=== PATIENT | female | born 2000 | race Caucasian/White ===

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

== ENCOUNTER → 2019-05-15 | Outpatient (REF) | payer BC ==
[2019-05-15 15:09] LABS: CHLAMYDIA DNA AMPLIFICATION NEGATIVE (NEGATIVE); GC DNA AMPLIFICATION NEGATIVE (NEGATIVE)
== END ==
LOC: M SFHCWAGY 13:08
PROVIDERS: ATTEND Nurse Practitioner Family
DX: Z11.3 Encounter for screening for infections with a predominantly sexual mode of transmission (principal)

== ENCOUNTER → 2020-08-03 | Outpatient (REF) | payer BC | LOC: M SFHCWAGY 09:52 | PROVIDERS: ATTEND Nurse Practitioner Women's Health | DX: Z12.4 Encounter for screening for malignant neoplasm of cervix (principal); Z11.3 Encounter for screening for infections with a predominantly sexual mode of transmission | CPT/HCPCS: 87491; 87591; G0123 ==

== ENCOUNTER → 2022-09-04 | Outpatient (REF) | payer OTHER | LOC: M SFHCWAGY 17:29 | PROVIDERS: ATTEND Nurse Practitioner Family | DX: Z12.4 Encounter for screening for malignant neoplasm of cervix (principal); Z77.9 Other contact with and (suspected) exposures hazardous to health; R87.615 Unsatisfactory cytologic smear of cervix ==

== ENCOUNTER → 2023-10-17 | Outpatient (CLI) | payer OTHER ==
[2023-10-17 19:41] LABS: FOLLICLE STIMULATING HORMONE 15.4 mIU/ML; LUTEINIZING HORMONE 70.2 mIU/ML; THYROID STIMULATING HORMONE 1.246 uIU/ML (0.55-4.78)
[2023-10-17 19:42] LABS: ESTRADIOL 201.8 PG/ML; FREE T4 1.06 NG/DL (0.89-1.76); PROLACTIN 21.55 NG/ML
[2023-10-17 19:43] LABS: HEMOGLOBIN A1c 4.8 % (4.0-6.0)
[2023-10-19 08:34] LABS: DEHYDROEPIANDROSTERONE SULFATE 241 mcg/dL (14-349)
== END ==
LOC: M PLALAB 16:01
PROVIDERS: ATTEND Nurse Practitioner Family
DX: N92.6 Irregular menstruation, unspecified (principal)
CPT/HCPCS: 36415; 82166; 82627; 82670; 83001; 83002; 83036; 83498; 84146; 84402; 84403; 84439; 84443; G0123

== ENCOUNTER → 2024-04-09 | Outpatient (CLI) | payer OTHER ==
[2024-04-09 13:27] LABS: HEMATOCRIT 38.5 % (36.0-47.0); HEMOGLOBIN 13.1 g/dl (12.0-15.5); MEAN CORPUSCULAR HEMOGLOBIN 31.5 pg (27.0-33.0); MEAN CORPUSCULAR VOLUME 92.5 fl (80.0-96.0); PLATELET COUNT, AUTOMATED 291 10^3/uL (150-450); RED BLOOD COUNT 4.16 10^6/uL (4.00-5.40); WHITE BLOOD COUNT 8.4 10^3/uL (4.0-10.0)
[2024-04-09 14:29] LABS: HIV 1&2 SCREEN NEGATIVE (NEGATIVE)
[2024-04-09 14:36] LABS: HEPATITIS C VIRUS ABY INDEX < 0.02 INDEX (<0.8)
[2024-04-09 15:05] LABS: GC DNA AMPLIFICATION NEGATIVE (NEGATIVE)
== END ==
LOC: M PLALAB 10:46
PROVIDERS: ATTEND Advanced Practice Midwife
DX: Z34.01 Encounter for supervision of normal first pregnancy, first trimester (principal); Z3A.00 Weeks of gestation of pregnancy not specified

== ENCOUNTER → 2024-06-05 | Outpatient (CLI) | payer OTHER | LOC: M WHC 15:34 | PROVIDERS: ATTEND Obstetrics & Gynecology | DX: Z36.89 Encounter for other specified antenatal screening (principal) ==

== ENCOUNTER → 2024-07-24 | Outpatient (CLI) | payer OTHER ==
[2024-07-24 11:09] LABS: HEMATOCRIT 33.2 % (36.0-47.0); HEMOGLOBIN 10.9 g/dl (12.0-15.5); MEAN CORPUSCULAR HEMOGLOBIN 31.1 pg (27.0-33.0); MEAN CORPUSCULAR HGB CONC 32.8 g/dl (32.0-36.5); MEAN CORPUSCULAR VOLUME 94.9 fl (80.0-96.0); PLATELET COUNT, AUTOMATED 262 10^3/uL (150-450); WHITE BLOOD COUNT 11.6 10^3/uL (4.0-10.0)
[2024-07-24 11:32] LABS: GLUCOSE CHALLENGE TEST 1 HOUR 89 MG/DL (LESS THAN 140)
[2024-07-24 12:05] LABS: HIV 1&2 SCREEN NEGATIVE (NEGATIVE)
[2024-07-24 13:21] LABS: Trichomonas vaginalis (AMP) NOT DETECTED (NEGATIVE)
[2024-07-24 13:45] LABS: GC DNA AMPLIFICATION NEGATIVE (NEGATIVE)
== END ==
LOC: M PLALAB 07:52
PROVIDERS: ATTEND Advanced Practice Midwife
DX: Z34.02 Encounter for supervision of normal first pregnancy, second trimester (principal); Z3A.00 Weeks of gestation of pregnancy not specified

== ENCOUNTER → 2024-09-29 | Outpatient (CLI) | payer OTHER | LOC: M WHC 07:42 | PROVIDERS: ATTEND Advanced Practice Midwife | DX: O99.893 Other specified diseases and conditions complicating puerperium (principal); Z3A.35 35 weeks gestation of pregnancy ==

== ENCOUNTER → 2024-09-29 | Outpatient (REF) | payer OTHER | LOC: M SFHCWAGY 10:18 | PROVIDERS: ATTEND Advanced Practice Midwife | DX: Z34.03 Encounter for supervision of normal first pregnancy, third trimester (principal) ==

== ENCOUNTER → 2024-10-20 | Outpatient (CLI) | payer OTHER ==
[~2024-10-20] MED LIST: COLA100C5 PO; IBUP80TA PO; IRON27TA2 PO; OXYC1TAB23 PO; PRENTAB9 PO
== END ==
LOC: M WHC 10:38
PROVIDERS: ATTEND Advanced Practice Midwife
DX: O99.891 Other specified diseases and conditions complicating pregnancy (principal); Z3A.38 38 weeks gestation of pregnancy

== ENCOUNTER 2024-10-21 05:58 | Inpatient (IN) | payer OTHER ==
[2024-10-21] VITALS (41 sets, daily range): BP systolic 95–153; BP diastolic 53–109
[~2024-10-21] VITALS: Ht 160 cm; Wt 76.5 kg
[2024-10-21] MEDS ORDERED: PRENTAB9 PO (06:10)
[2024-10-21 07:35] LABS: PLATELET COUNT, AUTOMATED 182 10^3/uL (150-450)
[2024-10-21] MEDS ORDERED: IRON27TA2 PO (07:39)
[2024-10-21 08:35] LABS: HIV 1&2 SCREEN NEGATIVE (NEGATIVE)
[2024-10-21 08:43] LABS: HEPATITIS C VIRUS ABY INDEX < 0.02 INDEX (<0.8)
[2024-10-21] MEDS ORDERED: LIDOCAINE 1% MDV 20 ML VIAL INFIL PRN (08:55)
[2024-10-21] MEDS ORDERED: OXYTOCIN DRIP 30 UNITS in IV 1 EA IV PRN (08:55)
[2024-10-21] MEDS ORDERED: HOME MED LIST COMPLETE! XX SCH (10:50)
[2024-10-21] MEDS: miSOPROStol 50 MCG 1/2 TABLET PO SCH (10:56)
[2024-10-21] MEDS: BUTORPHANOL 2 MG/ML 1 ML VIAL IV ONE (14:32)
[2024-10-21] MEDS ORDERED: OXYTOCIN DRIP 30 UNITS in IV 1 EA IV SCH (15:30)
[2024-10-21] MEDS ORDERED: ONDANSETRON 4MG 2ML VIAL IV PRN (16:05)
[2024-10-21] MEDS ORDERED: diphenhydrAMINE 50 MG/ML VIAL IV PRN (16:05)
[2024-10-21] MEDS ORDERED: EPIDURAL/PCA KEYS XX PRN (16:05)
[2024-10-21] MEDS ORDERED: NALOXONE INJ 0.4 MG/1 ML VIAL IV PRN (16:05)
[2024-10-21] MEDS: FENTANYL/ROPIVACAINE/NACL BAG 100 ML EPIDURAL SCH (17:17)
[2024-10-21] MEDS: LR 1,000 ML IV SCH (17:18)
[2024-10-21] MEDS: LR 500 ML IV PRN (17:44)
[2024-10-21] MEDS: AZITHROMYCIN INJ 500 MG, VIAL MATE ADAPTER 1 EACH in NS 250 ML IV ONE (22:52)
[2024-10-21] MEDS ORDERED: ONDANSETRON 4MG 2ML VIAL As Ordered ONE (23:06)
[2024-10-21] MEDS ORDERED: MORPHINE PRES-FREE INJ 10 MG/10 ML VIAL As Ordered ONE (23:06)
[2024-10-21] MEDS ORDERED: KETOROLAC 30 MG/ML 1 ML VIAL As Ordered ONE (23:06)
[2024-10-21] MEDS ORDERED: ACETAMINOPHEN 1000MG/100ML IV BAG As Ordered ONE (23:08)
[2024-10-21] MEDS ORDERED: OXYTOCIN 30UNITS IN 0.9% NaCl 500ML IV BAG As Ordered ONE (23:08)
[2024-10-21] MEDS ORDERED: LIDOCAINE 2% W/EPINEPHrine 20 ML VIAL **PRES FREE As Ordered ONE (23:08)
[2024-10-21] MEDS: ceFAZolin SODIUM 2 GM in DEXTROSE 5% (D5W) ADV/MINI-BAG 50 ML IV ONE (23:20)
[2024-10-21 23:57] LABS: CORD GAS ABE A -1.5; CORD GAS HCO3 A 26.1 MMOL/L; CORD GAS O2 SAT A 22.2 %; CORD GAS PCO2 A 55.9 mmHg; CORD GAS PH A 7.287 UNITS; CORD GAS PO2 A 13.1 mmHg; CORD GAS SBC A 21.4 MMOL/L; CORD GAS TCO2 A 27.8 MMOL/L
[2024-10-21 23:58] LABS: CORD GAS ABE V -1.5; CORD GAS HCO3 V 24.0 MMOL/L; CORD GAS O2 SAT V 54.7 %; CORD GAS PCO2 V 43.5 mmHg; CORD GAS PH V 7.36 UNITS; CORD GAS PO2 V 21.3 mmHg; CORD GAS SBC V 22.2 MMOL/L; CORD GAS TCO2 V 25.4 MMOL/L
[2024-10-22] VITALS (10 sets, daily range): BP systolic 90–110; BP diastolic 53–68; TEMP 98.6; O2SAT 95–99
[2024-10-22] MEDS ORDERED: RHOGAM 300MCG (1500IU) INJ IM SCH (00:25)
[2024-10-22] MEDS ORDERED: ONDANSETRON 4MG 2ML VIAL IV PRN ×2 (00:25→00:50)
[2024-10-22] MEDS ORDERED: **NOTE PATIENT COMMENT** MISC XX SCH (00:50)
[2024-10-22] MEDS ORDERED: NALOXONE INJ 0.4 MG/1 ML VIAL IV PRN ×2 (00:50)
[2024-10-22] MEDS ORDERED: MEPERIDINE 25 MG/ML 1 ML VIAL IV PRN (00:50)
[2024-10-22] MEDS ORDERED: HYDROMORPHONE HCL 0.5 MG/0.5 ML SYRINGE As Ordered ONE (01:07)
[2024-10-22] MEDS: HYDROMORPHONE HCL 0.5 MG/0.5 ML SYRINGE IV PRN (01:09)
[2024-10-22] MEDS: SLF 3 ML SYR IV SCH (02:10)
[2024-10-22] MEDS: LR 1,000 ML IV SCH (02:10)
[2024-10-22] MEDS: diphenhydrAMINE 50 MG/ML VIAL IV PRN (04:11)
[2024-10-22] MEDS: KETOROLAC 30 MG/ML 1 ML VIAL IV SCH (06:06)
[2024-10-22] MEDS ORDERED: COLA100C5 PO (06:34)
[2024-10-22] MEDS ORDERED: OXYC1TAB23 PO (06:34)
[2024-10-22] MEDS ORDERED: IBUP80TA PO (06:34)
[2024-10-22] MEDS: PRENATAL VITAMINS CHEWABLE TABLET PO SCH (08:31)
[2024-10-22] MEDS: PERCOCET 5MG/325MG TAB PO PRN (19:46)
[2024-10-23 02:00] VITALS: BP 109/69; O2SAT 99
[2024-10-23] MEDS: IBUPROFEN 800 MG TAB PO SCH (02:40)
[2024-10-23 06:00] VITALS: BP 97/57; O2SAT 99
[2024-10-23 07:20] LABS: PLATELET COUNT, AUTOMATED 177 10^3/uL (150-450)
[2024-10-23] MEDS: PERCOCET 5MG/325MG TAB PO PRN (09:54)
[2024-10-23] MEDS: DOCUSATE SODIUM 100 MG CAPSULE PO PRN (09:56)
[2024-10-23 10:05] VITALS: BP 110/71; O2SAT 98
[2024-10-23 14:00] VITALS: BP 124/80; O2SAT 98
[2024-10-23] MEDS: SIMETHICONE 80MG CHEW TAB PO PRN (14:32)
[2024-10-23 17:55] VITALS: BP 109/72; O2SAT 97
[2024-10-23 22:00] VITALS: BP 96/60; O2SAT 98
[2024-10-24 05:53] VITALS: BP 100/57; O2SAT 98
[2024-10-24] MEDS: MEASLES,MUMPS,RUBELLA VACCINE INJ (MMR-II) SC.IMMUN ONE (09:00)
== END 2024-10-24 12:40 | disposition home or self-care (01) | DRG 788 ==
LOC: M LDO 05:58 → M LDI 08:19 → M OBS 10-22 01:40
PROVIDERS: ADMIT Specialist; ATTEND Specialist
PROC: 10D00Z1 Extraction of Products of Conception, Low, Open Approach (ICD-10-PCS; principal; 2024-10-22)
DX: O42.02 Full-term premature rupture of membranes, onset of labor within 24 hours of rupture (principal); Z37.0 Single live birth; Z3A.38 38 weeks gestation of pregnancy; O62.0 Primary inadequate contractions; O69.81X0 Labor and delivery complicated by cord around neck, without compression, not applicable or unspecified

== ENCOUNTER → 2024-12-26 | Outpatient (CLI) | payer OTHER ==
[2024-12-26 14:45] LABS: PLATELET COUNT, AUTOMATED 302 10^3/uL (150-450)
== END ==
LOC: M PLALAB 11:34
PROVIDERS: ATTEND Advanced Practice Midwife
DX: T14.8XXA Other injury of unspecified body region, initial encounter (principal); Y92.9 Unspecified place or not applicable

== ENCOUNTER → 2025-01-07 | Outpatient (CLI) | payer OTHER | LOC: M RAD 16:04 | PROVIDERS: ATTEND Advanced Practice Midwife | DX: T14.8XXA Other injury of unspecified body region, initial encounter (principal); Y92.9 Unspecified place or not applicable; Y93.9 Activity, unspecified ==